=== PATIENT | male | born 1960 ===

== ENCOUNTER → 2019-04-27 06:55 | Outpatient (CLI) | payer OTHER | END | disposition home or self-care (01) | LOC: LAB 06:55 | DX: C73 Malignant neoplasm of thyroid gland (principal); E89.0 Postprocedural hypothyroidism ==

== ENCOUNTER → 2019-05-03 | Outpatient (CLI) | payer OTHER | END | disposition home or self-care (01) | LOC: NUCLEAR 12:47 | DX: C73 Malignant neoplasm of thyroid gland (principal) | CPT/HCPCS: 79005; A9517 ==

== ENCOUNTER 2019-05-10 12:44 | Outpatient (CLI) | payer OTHER | END 2019-05-10 13:03 | disposition home or self-care (01) | LOC: NUCLEAR 12:44 | DX: C73 Malignant neoplasm of thyroid gland (principal) ==

== ENCOUNTER 2020-06-09 09:37 | Outpatient (CLI) | payer OTHER | END 2020-06-09 09:49 | disposition home or self-care (01) | LOC: NUCLEAR 09:37 | PROVIDERS: ATTEND Internal Medicine Sports Medicine | DX: C73 Malignant neoplasm of thyroid gland (principal) | CPT/HCPCS: 78020; A9528; 78018 ==